=== PATIENT | male | born 1945 | race Caucasian/White ===

== ENCOUNTER 2018-12-12 08:07 | Observation (INO) | payer MEDICARE, BC ==
[2018-12-12] MEDS ORDERED: SODIUM CHLORIDE 0.9% 500 ML 500 ML IV STA (08:14)
[2018-12-12 08:42] LABS: Basophils % (A) 0 %; Eosinophils # (A) 0.2 k/uL (0-0.7); Eosinophils % (A) 3 %; HCT 45.2 % (39.0-53.0); HGB 14.4 gm/dL (13.0-17.5); Lymphocytes # (A) 0.9 k/uL (1.0-4.8); Lymphocytes % (A) 14 %; MCHC 31.9 g/dL (31.0-37.0); MCV 97.2 fL (80.0-100.0); Mean Platelet Volume 8.8; Monocytes # (A) 0.5 k/uL (0-1.0); Monocytes % (A) 8 %; Neutrophils # (A) 4.6 k/uL (1.3-7.7); Neutrophils % (A) 74 %; Platelet Count 188 k/uL (150-450); RBC 4.65 m/uL (4.30-5.90); RDW 12.6 % (11.5-15.5); WBC 6.2 k/uL (3.8-10.6)
--- NOTE | 2018-12-12 08:43 | ED ---
General Adult HPI - General Chief complaint: Dizziness Stated complaint: indigestion, dizzy Time Seen by Provider: 12/12/18 08:10 Source: patient, RN notes reviewed, old records reviewed Mode of arrival: ambulatory Limitations: no limitations - History of Present Illness Initial comments: 73-year-old male presents for evaluation of nausea, lightheadedness and indigestion. Patient states he has had symptoms of indigestion as well as lower abdominal pain and constipation for the past several days. His had some nausea associated with this. Today he woke and was quite lightheaded. He reports a mild headache which is resolved. He denies focal numbness or weakness. He does report that with his indigestion nausea had some diaphoresis. He has no known coronary artery disease. He has history of [id number]-[id number]-[id number], currently on metoprolol. He denies central chest pain. Denies dyspnea. States he has been eating and drinking normally. - Related Data Home Medications Medication Instructions Recorded Confirmed Lisinopril 5 mg PO HS 04/16/14 12/12/18 Metoprolol Succinate [Toprol XL] 25 mg PO HS 04/16/14 12/12/18 Aspirin EC [Ecotrin Low Dose] 81 mg PO HS 12/12/18 12/12/18 Atorvastatin [Lipitor] 20 mg PO HS 12/12/18 12/12/18 Fluticasone Nasal [place] [Flonase 1 spray EA NOSTRIL HS PRN 12/12/18 12/12/18 Nasal [place]] Allergies Allergy/AdvReac Type Severity Reaction Status Date / Time No Known Allergies Allergy Verified 12/12/18 08:48 Review of Systems ROS Statement: Those systems with pertinent positive or pertinent negative responses have been documented in the HPI. ROS Other: All systems not noted in ROS Statement are negative. Past Medical History Past Medical History: Eye Disorder, Osteoarthritis (OA), Sleep Apnea/CPAP/BIPAP Additional Past Medical History / Comment(s): HANDY PARKINSON WHITE SYNDROME. USES CPAP. RECENT CARDIAC W/U NL. HX CHI 2001 D/T WORK ACCIDENT. History of Any Multi-Drug Resistant Organisms: None Reported Past Surgical History: Cardiac Ablation, Joint Replacement, Orthopedic Surgery Additional Past Surgical History / Comment(s): shoulder Past Anesthesia/Blood Transfusion Reactions: No Reported Reaction Past Psychological History: No Psychological Hx Reported Smoking Status: Never smoker Past Alcohol Use History: Occasional Past Drug Use History: None Reported - Past Family History Father Family Medical History: Cancer, Coronary Artery Disease (CAD) Additional Family Medical History / Comment(s): FATHER AT AGE 95 YRS. Mother Family Medical History: Chest Pain / Angina Additional Family Medical History / Comment(s): MOTHER AT AGE 86YRS General Exam Limitations: no limitations General appearance: alert, in no apparent distress Head exam: Present: atraumatic, normocephalic Eye exam: Present: PERRL, EOMI ENT exam: Present: normal exam, mucous membranes moist Neck exam: Present: normal inspection. Absent: tenderness, meningismus Respiratory exam: Present: normal lung sounds bilaterally. Absent: respiratory distress, wheezes Cardiovascular Exam: Present: regular rate, irregular rhythm GI/Abdominal exam: Present: soft. Absent: distended, tenderness, guarding Extremities exam: Present: normal inspection, normal capillary refill. Absent: pedal edema Neurological exam: Present: alert, oriented X3, CN II-XII intact. Absent: motor sensory deficit Psychiatric exam: Present: normal affect, normal mood Skin exam: Present: warm, intact, diaphoretic. Absent: cyanosis, pallor Course Vital Signs 12/12/18 12/12/18 08:10 09:37 Temperature 97.4 F L Pulse Rate 59 L 75 Respiratory 18 18 Rate Blood Pressure 121/61 108/64 O2 Sat by Pulse 98 99 Oximetry EKG Findings - EKG Comments: EKG Findings:: EKG: Sinus bradycardia with PVC, rate of 55, NJ interval 160, QRS duration 100, QTC 432, no ST segment elevation. Heart rate without PVC is between 42 and 49. Medical Decision Making - Medical Decision Making 73-year-old male with epigastric discomfort, nausea, lightheadedness. Patient was diaphoretic prior to arrival. Patient's is bradycardic, sinus bradycardia with PVC. Blood pressure stable. He is currently on metoprolol twice daily. He has no ST segment elevation on EKG. Chest x-ray is obtained which is negative for acute cardio pulmonary disease, patient has normal CBC, normal CMP, negative initial troponin. He will be In observation for stroke or headache enzymes, cardiology consultation, telemetry. Case is discussed with the admitting physician. - Lab Data Result diagrams: 12/12/18 08:25 12/12/18 08:25 Lab Results 12/12/18 12/12/18 12/12/18 Range/Units 08:25 08:25 08:25 WBC 6.2 (3.8-10.6) k/uL RBC 4.65 (4.30-5.90) m/uL Hgb 14.4 (13.0-17.5) gm/dL Hct 45.2 (39.0-53.0) % MCV 97.2 (80.0-100.0) fL MCH 31.0 (25.0-35.0) pg MCHC 31.9 (31.0-37.0) g/dL RDW 12.6 (11.5-15.5) % Plt Count 188 (150-450) k/uL Neutrophils % 74 % Lymphocytes % 14 % Monocytes % 8 % Eosinophils % 3 % Basophils % 0 % Neutrophils # 4.6 (1.3-7.7) k/uL Lymphocytes # 0.9 L (1.0-4.8) k/uL Monocytes # 0.5 (0-1.0) k/uL Eosinophils # 0.2 (0-0.7) k/uL Basophils # 0.0 (0-0.2) k/uL PT (9.0-12.0) sec INR (<1.2) APTT (22.0-30.0) sec Sodium 139 (137-145) mmol/L Potassium 4.3 (3.5-5.1) mmol/L Chloride 105 (98-107) mmol/L Carbon Dioxide 25 (22-30) mmol/L Anion Gap 9 mmol/L BUN 20 (9-20) mg/dL Creatinine 0.70 (0.66-1.25) mg/dL Est GFR (CKD-EPI)AfAm >90 (>60 ml/min/1.73 sqM) Est GFR (CKD-EPI)NonAf >90 (>60 ml/min/1.73 sqM) Glucose 138 H (74-99) mg/dL Calcium 9.5 (8.4-10.2) mg/dL Magnesium 2.1 (1.6-2.3) mg/dL Total Bilirubin 0.8 (0.2-1.3) mg/dL AST 21 (17-59) U/L ALT 30 (21-72) U/L Alkaline Phosphatase 63 (38-126) U/L Troponin I (0.000-0.034) ng/mL NT-Pro-B Natriuret Pep 203 pg/mL Total Protein 6.5 (6.3-8.2) g/dL Albumin 4.3 (3.5-5.0) g/dL Lipase 145 (23-300) U/L 12/12/18 12/12/18 Range/Units 08:25 08:25 WBC (3.8-10.6) k/uL RBC (4.30-5.90) m/uL Hgb (13.0-17.5) gm/dL Hct (39.0-53.0) % MCV (80.0-100.0) fL MCH (25.0-35.0) pg MCHC (31.0-37.0) g/dL RDW (11.5-15.5) % Plt Count (150-450) k/uL Neutrophils % % Lymphocytes % % Monocytes % % Eosinophils % % Basophils % % Neutrophils # (1.3-7.7) k/uL Lymphocytes # (1.0-4.8) k/uL Monocytes # (0-1.0) k/uL Eosinophils # (0-0.7) k/uL Basophils # (0-0.2) k/uL PT 10.1 (9.0-12.0) sec INR 0.9 (<1.2) APTT 24.8 (22.0-30.0) sec Sodium (137-145) mmol/L Potassium (3.5-5.1) mmol/L Chloride (98-107) mmol/L Carbon Dioxide (22-30) mmol/L Anion Gap mmol/L BUN (9-20) mg/dL Creatinine (0.66-1.25) mg/dL Est GFR (CKD-EPI)AfAm (>60 ml/min/1.73 sqM) Est GFR (CKD-EPI)NonAf (>60 ml/min/1.73 sqM) Glucose (74-99) mg/dL Calcium (8.4-10.2) mg/dL Magnesium (1.6-2.3) mg/dL Total Bilirubin (0.2-1.3) mg/dL AST (17-59) U/L ALT (21-72) U/L Alkaline Phosphatase (38-126) U/L Troponin I <0.012 (0.000-0.034) ng/mL NT-Pro-B Natriuret Pep pg/mL Total Protein (6.3-8.2) g/dL Albumin (3.5-5.0) g/dL Lipase (23-300) U/L Disposition Clinical Impression: Sinus bradycardia, Anginal equivalent Disposition: ADMITTED IP TO THIS [facility] Condition: Stable Is patient prescribed a controlled substance at d/c from ED?: No Referrals: Suraj Morrissey MD [Primary Care Provider] - 1-2 days Decision to Admit Reason: Admit from EC Decision Date: 12/12/18 Decision Time: 10:37
[2018-12-12 08:51] LABS: INR 0.9 (<1.2); Partial Thromboplastin Time 24.8 sec (22.0-30.0); Prothrombin Time 10.1 sec (9.0-12.0)
[2018-12-12 08:54] LABS: ALT 30 U/L (21-72); AST 21 U/L (17-59); African American GFR (CKD) >90 (>60 ml/min/1.73 sqM); Albumin 4.3 g/dL (3.5-5.0); Alkaline Phosphatase 63 U/L (38-126); Anion Gap 9 mmol/L; Blood Urea Nitrogen 20 mg/dL (9-20); Calcium 9.5 mg/dL (8.4-10.2); Carbon Dioxide 25 mmol/L (22-30); Chloride 105 mmol/L (98-107); Glucose 138 mg/dL (74-99); Lipase 145 U/L (23-300); Magnesium 2.1 mg/dL (1.6-2.3); Potassium 4.3 mmol/L (3.5-5.1); Sodium 139 mmol/L (137-145); Total Bilirubin 0.8 mg/dL (0.2-1.3); Total Protein 6.5 g/dL (6.3-8.2)
--- NOTE | 2018-12-12 09:24 | XR ---
EXAMINATION TYPE: XR KUB DATE OF EXAM: 12/12/2018 9:19 AM CLINICAL HISTORY: Abdominal pain TECHNIQUE: Single supine KUB image of the abdomen is obtained. COMPARISON: None. FINDINGS: There is a mild S-shaped scoliotic curvature of the thoracolumbar spine with surgical fixat ion of the lumbar spine and left hip arthroplasty noted. Scattered gas is seen in nondilated small josé wel loops. Gas and fecal material is seen in nondilated colon. No abnormal calcification is seen in t he abdomen or pelvis. Supine exam limits evaluation for pneumoperitoneum however no gross evidence of pneumoperitoneum is seen. The lung bases are clear and the osseous structures are intact. IMPRESSION: Nonobstructive bowel gas pattern.
--- NOTE | 2018-12-12 09:34 | XR ---
EXAMINATION TYPE: XR chest 2V DATE OF EXAM: 12/12/2018 COMPARISON: 04/04/2014 HISTORY: 73-year-old male with chest pain TECHNIQUE: AP and lateral views FINDINGS: Heart upper limits of normal in size. Mild interstitial prominence has a chronic appearance. Epicardi al fat pad at the cardiac apex. No consolidation or pleural effusion. IMPRESSION: Borderline heart size. Some chronic appearing changes. No definite acute process.
[2018-12-12] MEDS ORDERED: ASPIRIN 325 MG TAB PO STA (10:08)
[2018-12-12] MEDS ORDERED: SODIUM CHLORIDE 0.9% 500 ML 500 ML IV ONE (10:08)
[2018-12-12] MEDS ORDERED: NALOXONE 0.4 MG/ML 1 ML VIAL IV PRN (10:31)
[2018-12-12] MEDS ORDERED: ACETAMINOPHEN TAB 325 MG TAB PO PRN (10:31)
[2018-12-12] MEDS ORDERED: ONDANSETRON 4 MG/2 ML VIAL IVP PRN (10:31)
[2018-12-12] MEDS ORDERED: FLUTICASONE 50MCG/SPRAY NASAL 16GM EA NOSTRIL PRN (12:02)
--- NOTE | 2018-12-12 12:48 | P.HPIM ---
History of Present Illness H&P Date: 12/12/18 Chief Complaint: Lightheadedness. This is a 73-year-old male one of Dr. Morrissey with a pacemaker history significant for Jryqw-[id number]-Jpbgr syndrome under the care of Dr. Santos with prior to ablation done in the past him a history of closed head injury due to a back control and ended up with no is fracture with orbital fracture status post surgery, patient was in his usual state of health about today when he woke up in the morning and he felt extremely lightheaded with significant nausea but no vomiting he ended up coming to the ER for evaluation had a twelve-lead EKG that showed sinus bradycardia with PVCs, however his cardiac enzymes were negative, because of the presentation patient was admitted to the hospital for evaluation by cardiology agent has no chest pain at that time he has no weakness he has no headache he has no syncope . Patient just underwent left shoulder arthroscopic surgery due to rotator cuff tear on his last Sunday and was supposed to follow-up with Dr. Regalado in the office on December 18. Review of Systems Constitutional: Denies chills, Denies chronic headaches, Denies lethargy, Denies malaise, Denies weakness, Denies weight gain Eyes: denies as per HPI, denies blurred vision, denies bulging eye, denies decreased vision Ears: deny: decreased hearing Ears, nose, mouth and throat: Denies dysphagia, Denies neck lump, Denies sore throat, Denies vertigo Cardiovascular: Reports lightheadedness, Denies chest pain, Denies decreased exercise tolerance, Denies dyspnea on exertion, Denies edema, Denies leg edema, Denies orthopnea, Denies palpitations, Denies rapid heart beat, Denies shortness of breath, Denies syncope Respiratory: Denies congestion, Denies cough with sputum, Denies home oxygen, Denies sleep apnea, Denies snoring, Denies wheezing Gastrointestinal: Denies abdominal pain, Denies BRBPR, Denies change in bowel habits, Denies heartburn, Denies hematemesis, Denies melena, Denies nausea, Denies vomiting Genitourinary: Denies decreased libido, Denies dysuria, Denies nocturia Musculoskeletal: Denies myalgias Musculoskeletal: absent: ankle pain, ankle stiffness, ankle swelling, elbow pain, elbow stiffness, elbow swelling, foot pain, foot stiffness, foot swelling, hand pain, hand stiffness, hand swelling, hip pain, hip stiffness, hip swelling, knee pain, knee stiffness, knee swelling, shoulder pain, shoulder stiffness, shoulder swelling, wrist pain, wrist stiffness, wrist swelling Integumentary: Denies pruritus, Denies rash Neurological: Denies numbness, Denies weakness Psychiatric: Denies anxiety, Denies depression Endocrine: Denies fatigue, Denies weight change Past Medical History Past Medical History: Eye Disorder, Hyperlipidemia, Osteoarthritis (OA), Sleep Apnea/CPAP/BIPAP Additional Past Medical History / Comment(s): HANDY PARKINSON WHITE SYNDROME. USES CPAP. RECENT CARDIAC W/U NL. HX CHI 2001 D/T WORK ACCIDENT. History of Any Multi-Drug Resistant Organisms: None Reported Past Surgical History: Cardiac Ablation, Joint Replacement, Orthopedic Surgery Additional Past Surgical History / Comment(s): Recent left shoulder arthroscopic surgery due to rotator cuff tear, eye surgery, no surgery, bilateral arthroscopic knee surgery, left total hip arthroplasty, laminectomy with fusion from L2 to the sacrum. Past Anesthesia/Blood Transfusion Reactions: No Reported Reaction Past Psychological History: No Psychological Hx Reported Smoking Status: Never smoker Past Alcohol Use History: Occasional Past Drug Use History: None Reported - Past Family History Father Family Medical History: Cancer, Coronary Artery Disease (CAD) (Father at age 95 from west Nile virus and he also had history of heart disease) Additional Family Medical History / Comment(s): FATHER AT AGE 95 YRS. Mother Family Medical History: Chest Pain / Angina (Mother at age of 87 from NE.) Additional Family Medical History / Comment(s): MOTHER AT AGE 86YRS Brother(s) Family Medical History: Myocardial Infarction (NE) (Patient has 2 brothers one of them with NE.) Son(s) Family Medical History: No Reported History (Patient has 2 sons no major medical problems.) Daughter(s) Family Medical History: No Reported History (Patient has one daughter no major medical problems.) Medications and Allergies Home Medications Medication Instructions Recorded Confirmed Type Lisinopril 5 mg PO HS 04/16/14 12/12/18 History Metoprolol Succinate [Toprol XL] 25 mg PO HS 04/16/14 12/12/18 History Aspirin EC [Ecotrin Low Dose] 81 mg PO HS 12/12/18 12/12/18 History Atorvastatin [Lipitor] 20 mg PO HS 12/12/18 12/12/18 History Fluticasone Nasal [place] [Flonase 1 spray EA NOSTRIL HS PRN 12/12/18 12/12/18 History Nasal [place]] Allergies Allergy/AdvReac Type Severity Reaction Status Date / Time No Known Allergies Allergy Verified 12/12/18 08:48 Physical Exam Vitals: Vital Signs Temp Pulse Resp BP Pulse Ox 12/12/18 12:01 60 18 106/73 97 12/12/18 09:37 75 18 108/64 99 12/12/18 08:10 97.4 F L 59 L 18 121/61 98 Intake and Output 12/11/18 12/12/18 12/12/18 22:59 06:59 14:59 Other: Weight 77.746 kg - Constitutional General appearance: average body habitus, no acute distress - EENT Eyes: anicteric sclerae, EOMI, PERRLA, no ptosis, no scleral icterus, normal a ppearance ENT: hearing grossly normal, NA/AT, normal oropharynx, no thrush Ears: bilateral: normal - Neck Neck: no lymphadenopathy, normal ROM, no rigidity, no stridor, no thyromegaly Carotids: bilateral: upstroke normal Thyroid: bilateral: normal size - Respiratory Respiratory: bilateral: diminished, negative: dullness, rales, rhonchi, wheezing, prolonged expiration, prolonged inspiration - Cardiovascular Rhythm: regular Heart sounds: normal: S1, S2 Abnormal Heart Sounds: no systolic murmur, no S3 Gallop, no S4 Gallop - Gastrointestinal General gastrointestinal: normal bowel sounds, soft, no splenomegaly, no tenderness, no umbilical hernia, no ventral hernia - Integumentary Integumentary: normal, normal turgor - Neurologic Neurologic: CNII-XII intact - Musculoskeletal Musculoskeletal: gait normal, strength equal bilaterally - Psychiatric Psychiatric: A&O x's 3, appropriate affect, intact judgment & insight Results CBC & Chem 7: 12/12/18 08:25 12/12/18 08:25 Labs: Abnormal Lab Results - Last 24 Hours (Table) 12/12/18 12/12/18 Range/Units 08:25 08:25 Lymphocytes # 0.9 L (1.0-4.8) k/uL Glucose 138 H (74-99) mg/dL Thrombosis Risk Factor Assmnt - DVT/VTE Prophylaxis DVT/VTE Prophylaxis: Pharmacologic Prophylaxis ordered, Mechanical Prophylaxis ordered Assessment and Plan Assessment: Assessment and plan: 1. Dizziness and lightheadedness with significant nausea without vomiting along with significant indigestion of unclear etiology rule out the possibility of cardiac arrhythmias. Admit patient to observation telemetry and, cardiac enzymes 3 every 8 hours, cardiology consultation, patient did have a recent cardiac workup he stated a month ago prior to his left shoulder after scopic surgery that was done last Sunday. 2. History of for Parkinson White syndrome. Stable at this time. 3. Hypertension and hypertensive cardiovascular disease. Continue lisinopril 5 mg orally once every day, hold beta kyle. Due to bradycardia. 4. Hyperlipidemia. Continue patient on atorvastatin 20 mg orally once every day. 5. ALLERGIC rhinitis. Continue patient on Flonase 1 spray in both nostril twice every day. 6. DVT prophylaxis. Continue patient on heparin 5000 subcutaneous every 12 hours. 7. GI prophylaxis. Protonix 40 mg orally once every day. 8. Patient is full code. 9. Patient is observation.
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
[2018-12-12 15:00] VITALS: BMI 26.0
[2018-12-12] MEDS: SODIUM CHLORIDE 0.9% 1,000 ML IV SCH (15:10)
[2018-12-12] MEDS ORDERED: ASPIRIN 81 MG PO SCH (21:00)
[2018-12-12] MEDS ORDERED: ATORVASTATIN 20 MG TAB PO SCH (21:00)
[2018-12-12] MEDS ORDERED: LISINOPRIL 5 MG TAB PO SCH (21:00)
[2018-12-13] MEDS: SODIUM CHLORIDE 0.9% 1,000 ML IV SCH (07:47)
[2018-12-13] MEDS ORDERED: PANTOPRAZOLE 40 MG/10 ML VIAL IV SCH (09:00)
[2018-12-13 11:15] VITALS: BP 139/79; PULSE 71; RESP 18; TEMP 98.1
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
[2018-12-14] MEDS ORDERED: PANTOPRAZOLE 40 MG TABLET PO SCH (07:30)
== END 2018-12-13 12:10 | disposition home or self-care (01) ==
LOC: EC 08:07 → 1SOBS 10:31
PROVIDERS: ADMIT Internal Medicine Geriatric Medicine; ATTEND Internal Medicine Geriatric Medicine
DX: I95.1 Orthostatic hypotension (principal); R00.1 Bradycardia, unspecified; E78.5 Hyperlipidemia, unspecified; G47.30 Sleep apnea, unspecified; I11.9 Hypertensive heart disease without heart failure; I45.6 Pre-excitation syndrome; K30 Functional dyspepsia; J30.9 Allergic rhinitis, unspecified; I07.1 Rheumatic tricuspid insufficiency; I42.0 Dilated cardiomyopathy; I37.1 Nonrheumatic pulmonary valve insufficiency; Z79.82 Long term (current) use of aspirin; Z79.899 Other long term (current) drug therapy; Z98.890 Other specified postprocedural states; Z99.89 Dependence on other enabling machines and devices; M19.90 Unspecified osteoarthritis, unspecified site; Z96.642 Presence of left artificial hip joint; Z98.1 Arthrodesis status; Z82.49 Family history of ischemic heart disease and other diseases of the circulatory system
CPT/HCPCS: 96361 ×3; 96374; 99285; 36415; 94760; 93005; 85379; 83880; 80053; 83690; 83735; 84484; 85025; 85610; 85730; 71046; 74018; G0378 ×2; C9113

== ENCOUNTER 2024-10-12 06:44 | Emergency (ER) | payer MEDICARE, BC ==
[2024-10-12 06:59] LABS: Glucose,Whole Blood 117 mg/dL (70-110)
[2024-10-12 07:54] LABS: Basophils # (A) 0.03 10*3/uL (0.00-0.10); Basophils % (A) 0.6 %; Eosinophils # (A) 0.11 10*3/uL (0.04-0.35); Eosinophils % (A) 2.2 %; HCT 34.9 % (39.6-50.0); Lymphocytes # (A) 1.41 10*3/uL (0.90-5.00); Lymphocytes % (A) 27.8 %; MCH 32.7 pg (27.0-32.0); MCHC 34.4 g/dL (32.0-37.0); MCV 95.1 fL (80.0-97.0); Mean Platelet Volume 10.8 fL (9.5-12.2); Monocytes # (A) 0.54 10*3/uL (0.20-1.00); Monocytes % (A) 10.7 %; Neutrophils # (A) 2.97 10*3/uL (1.80-7.70); Neutrophils % (A) 58.5 %; Platelet Count 266 10*3/uL (140-440); RBC 3.67 10*6/uL (4.40-5.60); WBC 5.07 10*3/uL (4.50-10.00)
[2024-10-12] MEDS: SODIUM CHLORIDE 0.9% 500 ML 500 ML IV STA (07:55)
[2024-10-12 07:57] VITALS: RESP 16
--- NOTE | 2024-10-12 08:08 | XR ---
EXAMINATION TYPE: XR chest 2V DATE OF EXAM: 10/12/2024 7:54 AM COMPARISON: Chest radiographs from 12/12/2018 TECHNIQUE: XR chest 2V Frontal and lateral views of the chest. CLINICAL INDICATION:Male, 79 years old with history of DIZZINESS; FINDINGS: Lungs/Pleura: There is no evidence of pleural effusion, focal consolidation, or pneumothorax. Pulmonary vascularity: Unremarkable. Heart/mediastinum: Cardiomediastinal silhouette is prominent in size. Epicardial fat pad at the card iac apex. Musculoskeletal: Multiple level degenerative disc disease changes seen throughout the spine. IMPRESSION: No acute cardiopulmonary disease/process. [facility], , 10/12/2024 8:05 AM
[2024-10-12 08:11] LABS: ALT 20 U/L (4-49); AST 24 U/L (17-59); African American GFR (CKD) >90 (>60 ml/min/1.73 sqM); Albumin 4.2 g/dL (3.5-5.0); Alkaline Phosphatase 41 U/L (38-126); Anion Gap 10 mmol/L; Blood Urea Nitrogen 14 mg/dL (9-20); Calcium 9.8 mg/dL (8.4-10.2); Carbon Dioxide 23 mmol/L (22-30); Chloride 104 mmol/L (98-107); Glucose 113 mg/dL (74-99); Non-African American GFR(CKD) >90 (>60 ml/min/1.73 sqM); Potassium 4.3 mmol/L (3.5-5.1); Sodium 137 mmol/L (137-145); Total Bilirubin 0.7 mg/dL (0.2-1.3); Total Protein 6.4 g/dL (6.3-8.2)
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
[2024-10-12 09:24] VITALS: BP 143/77; PULSE 59; TEMP 97.8
== END 2024-10-12 09:28 | disposition home or self-care (01) ==
LOC: EC 06:44
DX: R42 Dizziness and giddiness (principal)
CPT/HCPCS: 36415; 71046; 80053; 83605; 84484; 85025; 85379; 93005; 99284

== ENCOUNTER 2024-10-13 07:32 | Emergency (ER) | payer MEDICARE, BC ==
[2024-10-13 07:39] VITALS: RESP 18
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
[2024-10-13 08:40] LABS: Basophils # (A) 0.03 10*3/uL (0.00-0.10); Basophils % (A) 0.7 %; Eosinophils # (A) 0.12 10*3/uL (0.04-0.35); Eosinophils % (A) 2.7 %; HCT 33.5 % (39.6-50.0); HGB 11.6 g/dL (13.0-17.0); Lymphocytes % (A) 22.5 %; MCH 33.3 pg (27.0-32.0); MCHC 34.6 g/dL (32.0-37.0); MCV 96.3 fL (80.0-97.0); Mean Platelet Volume 10.3 fL (9.5-12.2); Monocytes % (A) 11.3 %; Neutrophils # (A) 2.78 10*3/uL (1.80-7.70); Neutrophils % (A) 62.6 %; Platelet Count 250 10*3/uL (140-440); RBC 3.48 10*6/uL (4.40-5.60); RDW 13.1 % (11.5-14.5); WBC 4.44 10*3/uL (4.50-10.00)
[2024-10-13 08:54] LABS: ALT 18 U/L (4-49); AST 20 U/L (17-59); African American GFR (CKD) >90 (>60 ml/min/1.73 sqM); Albumin 3.9 g/dL (3.5-5.0); Alkaline Phosphatase 45 U/L (38-126); Anion Gap 6 mmol/L; Blood Urea Nitrogen 13 mg/dL (9-20); Calcium 9.3 mg/dL (8.4-10.2); Carbon Dioxide 26 mmol/L (22-30); Chloride 106 mmol/L (98-107); Glucose 108 mg/dL (74-99); Non-African American GFR(CKD) >90 (>60 ml/min/1.73 sqM); Potassium 4.1 mmol/L (3.5-5.1); Sodium 138 mmol/L (137-145); Total Bilirubin 0.6 mg/dL (0.2-1.3); Total Protein 5.9 g/dL (6.3-8.2)
[2024-10-13] MEDS: PANTOPRAZOLE 40 MG/10 ML VIAL IVP STA (09:24)
[2024-10-13 10:22] VITALS: BP 148/84; PULSE 76; TEMP 98
== END 2024-10-13 10:22 | disposition home or self-care (01) ==
LOC: EC 07:32
DX: R42 Dizziness and giddiness (principal); K92.2 Gastrointestinal hemorrhage, unspecified
CPT/HCPCS: 36415; 93005; 80053; 85025; 82272; 99284; 96374; J2470